=== PATIENT | male | born 2000 | race Caucasian/White ===

== ENCOUNTER 2019-08-03 19:59 | Emergency (ER) | payer SELFPAY ==
[~2019-08-03] VITALS: Ht 175.3 cm; Wt 95.0 kg
[2019-08-03] MEDS ORDERED: SODIUM CHLORIDE 0.9% 1,000 ML IV ONE (20:24)
[2019-08-03 21:10] LABS: BASOPHILS % 0.9 % (0.0-2.0); CHLORIDE 115 mEq/L (98-107); EOSINOPHILS % 0.4 % (0.0-5.0); HEMATOCRIT. 44.1 % (42.0-52.0); HEMOGLOBIN. 14.9 g/dL (14.0-18.0); LYMPHOCYTES % 21.5 % (20.0-50.0); MEAN CORPUSCULAR HEMOGLOBIN 32.4 pg (28.0-32.0); MEAN CORPUSCULAR VOLUME 95.7 fL (80.0-94.0); MEAN PLATELET VOLUME 7.6 fl (7.4-10.4); MONOCYTES % 5.9 % (2.0-8.0); NEUTROPHILS % 71.3 % (40.0-76.0); PLATELET 281 x1000/uL (130-400); RED CELL DISTRIBUTION WIDTH 14.1 % (11.6-14.6)
[2019-08-03 21:24] LABS: ETHANOL BLOOD 385 mg/dL
[2019-08-03] MEDS ORDERED: LORAZEPAM 2MG/ML CPJ IV ONE (21:45)
[2019-08-03 23:12] LABS: *AMPHETAMINES SCREEN URINE NEGATIVE (NEGATIVE); *BARBITURATES SCREEN URINE NEGATIVE (NEGATIVE); *BENZODIAZEPINES SCREEN URINE NEGATIVE (NEGATIVE); *COCAINE SCREEN URINE NEGATIVE (NEGATIVE); METHADONE URINE SCREEN NEGATIVE (NEGATIVE); OPIATES URINE SCREEN NEGATIVE (NEGATIVE)
[2019-08-03 23:14] LABS: CANNABINOID URINE SCREEN PRESUMTIVE POSITIVE (NEGATIVE); PHENCYCLIDINE URINE SCREEN NEGATIVE (NEGATIVE)
[2019-08-04 08:08] VITALS: BP 107/61
== END 2019-08-04 08:09 | disposition home or self-care (01) ==
LOC: ER 20:13
DX: F10.229 Alcohol dependence with intoxication, unspecified (principal); S60.511A Abrasion of right hand, initial encounter; S50.812A Abrasion of left forearm, initial encounter; F12.10 Cannabis abuse, uncomplicated; Y90.8 Blood alcohol level of 240 mg/100 ml or more; W01.0XXA Fall on same level from slipping, tripping and stumbling without subsequent striking against object, initial encounter; Y93.89 Activity, other specified; Y92.488 Other paved roadways as the place of occurrence of the external cause
CPT/HCPCS: 36415; 70450; 73090; 73130; 80053; 80305; 80320; 85025; 93005; 96361; 96374; 99284; J2060; J7030; Z7610; G0480

== ENCOUNTER 2022-03-05 20:57 | Emergency (ER) | payer SELFPAY ==
[~2022-03-05] VITALS: Ht 172.7 cm; Wt 98.0 kg
[2022-03-05] MEDS ORDERED: SODIUM CHLORIDE 0.9% 1,000 ML IV ONE (21:15)
[2022-03-05 22:00] LABS: BASOPHILS % 0.7 % (0.0-2.0); EOSINOPHILS % 0.8 % (0.0-5.0); HEMATOCRIT. 40.8 % (42.0-52.0); HEMOGLOBIN. 13.7 g/dL (14.0-18.0); MEAN CORPUSCULAR HEMOGLOBIN 31.6 pg (28.0-32.0); MEAN CORPUSCULAR VOLUME 94.3 fL (80.0-94.0); MEAN PLATELET VOLUME 7.7 fl (7.4-10.4); MONOCYTES % 5.4 % (2.0-8.0); NEUTROPHILS % 68.1 % (40.0-76.0); PLATELET 280 x1000/uL (130-400); RED BLOOD CELL COUNT 4.32 mill/uL (4.7-6.1); RED CELL DISTRIBUTION WIDTH 13.5 % (11.6-14.6)
[2022-03-05 22:10] LABS: CHLORIDE 109 mEq/L (98-107)
[2022-03-05 22:18] LABS: ETHANOL BLOOD 192 mg/dL
[2022-03-06 01:30] VITALS: BP 115/52
== END 2022-03-06 02:00 | disposition home or self-care (01) ==
LOC: ER 20:57
DX: F10.229 Alcohol dependence with intoxication, unspecified (principal); R94.5 Abnormal results of liver function studies; Y90.6 Blood alcohol level of 120-199 mg/100 ml; Z87.828 Personal history of other (healed) physical injury and trauma; W01.0XXA Fall on same level from slipping, tripping and stumbling without subsequent striking against object, initial encounter; Y93.89 Activity, other specified; Y92.488 Other paved roadways as the place of occurrence of the external cause
CPT/HCPCS: 36415; 70450; 72125; 72170; 80053; 80320; 85025; 96360; 99285; J7030; G0480

== ENCOUNTER 2023-03-13 04:01 | Emergency (ER) | payer OTHER ==
[~2023-03-13] VITALS: Ht 172.7 cm; Wt 94.2 kg
[2023-03-13 04:26] VITALS: O2SAT 97
[2023-03-13 05:09] LABS: CLARITY URINE CLEAR (CLEAR); COLOR URINE YELLOW (YELLOW); GLUCOSE URINE NEGATIVE (NEGATIVE); KETONES URINE NEGATIVE (NEGATIVE); LEUKOCYTE ESTERASE URINE NEGATIVE (NEGATIVE); NITRITE URINE NEGATIVE (NEGATIVE); OCCULT BLOOD URINE NEGATIVE (NEGATIVE); PH URINE 5.5 (4.5-8.0); PROTEIN URINE NEGATIVE (NEGATIVE); SPECIFIC GRAVITY URINE 1.016 (1.005-1.030); UROBILINOGEN URINE 0.2 E.U./dL (0.2-1.0)
[2023-03-13 07:04] VITALS: BP 138/84; PULSE 68; RESP 14; TEMP 98.3
[2023-03-13] MEDS ORDERED: VALACYCLOVIR HCL 500MG TABLET PO SCH (07:45)
[2023-03-13] MEDS ORDERED: CEFTRIAXONE SODIUM 500 MG/VIAL IM ONE (07:45)
[2023-03-13] MEDS ORDERED: DOXY100T2 MT (08:36)
[2023-03-16 04:07] LABS: HIV SCREEN 4G Non Reactive (Non Reactive)
== END 2023-03-13 09:13 | disposition home or self-care (01) ==
LOC: ER 04:01
DX: Z20.2 Contact with and (suspected) exposure to infections with a predominantly sexual mode of transmission (principal); B00.1 Herpesviral vesicular dermatitis
CPT/HCPCS: 99283; 86592; 81003; 87389; 96372; J0696

== ENCOUNTER 2023-07-22 08:59 | Emergency (ER) | payer MEDICAID, OTHER ==
[~2023-07-22] VITALS: Ht 172.7 cm; Wt 109.0 kg
[~2023-07-22 08:59] MED LIST: DOXY100T2 MT
[2023-07-22 09:04] VITALS: BP 171/91; PULSE 106; RESP 16; TEMP 98.6; O2SAT 100
[2023-07-22] MEDS ORDERED: DIAZEPAM 5 MG TABLET PO ONE (09:30)
[2023-07-22 09:43] LABS: BASOPHILS % 0.5 % (0.0-2.0); HEMATOCRIT. 41.7 % (42.0-52.0); HEMOGLOBIN. 13.8 g/dL (14.0-18.0); LYMPHOCYTES % 7.2 % (20.0-50.0); MEAN CORPUSCULAR HEMOGLOBIN 31.1 pg (28.0-32.0); MEAN CORPUSCULAR HGB CONC 33.1 g/dL (31.0-37.0); MEAN CORPUSCULAR VOLUME 93.9 fL (80.0-94.0); MONOCYTES % 5.5 % (2.0-8.0); NEUTROPHILS % 86.8 % (40.0-76.0); PLATELET 339 x1000/uL (130-400); RED BLOOD CELL COUNT 4.44 mill/uL (4.7-6.1); WHITE BLOOD COUNT 14.6 x1000/uL (4.5-11.0)
[2023-07-22] MEDS ORDERED: FAMOTIDINE 20MG TABLET PO ONE (09:45)
[2023-07-22 10:03] LABS: ALANINE AMINOTRANSFERASE 52 IU/L (10-49); ALBUMIN 4.7 g/dL (3.2-4.8); ASPARTATE AMINOTRANSFERASE 33 IU/L (<34); BILIRUBIN TOTAL 0.9 mg/dL (0.1-1.0); CALCIUM 9.9 mg/dL (8.7-10.4); CARBON DIOXIDE 19 mEq/L (21-32); CHLORIDE 103 mEq/L (98-107); CREATININE 0.9 mg/dL (0.6-1.3); GLUCOSE 107 mg/dL (70-105); POTASSIUM 3.8 mEq/L (3.5-5.1); SODIUM 136 mEq/L (136-145); TROPONIN I HIGH SENSITIVITY 5 ng/L (3.0-53); UREA NITROGEN BLOOD 8 mg/dL (9-23)
== END 2023-07-22 13:20 | disposition left against medical advice (07) ==
LOC: ER 08:59
DX: R10.13 Epigastric pain (principal); R25.1 Tremor, unspecified
CPT/HCPCS: 36415; 71045; 80053; 84484; 85025; 93005; 99285

== ENCOUNTER 2023-11-06 02:09 | Emergency (ER) | payer SELFPAY ==
[~2023-11-06] VITALS: Ht 167.6 cm; Wt 73.0 kg
[2023-11-06 02:13] VITALS: BP 116/74; PULSE 89; RESP 18; TEMP 97.8; O2SAT 99
== END 2023-11-06 06:20 | disposition left against medical advice (07) ==
LOC: ER 02:26
DX: H57.10 Ocular pain, unspecified eye (principal); Z53.21 Procedure and treatment not carried out due to patient leaving prior to being seen by health care provider
CPT/HCPCS: 99281